=== PATIENT | female | born 1990 | race Caucasian/White ===

== ENCOUNTER 2016-09-22 08:03 | Emergency (ER) | payer MEDICARE, MEDICAID ==
[~2016-09-22] VITALS: Ht 162.6 cm; Wt 65.8 kg
[~2016-09-22 08:03] MED LIST: ALPR1TAB2 PO; OXYC30TA50 PO; PAR20T OR; PRED-188 PO; RISP4TAB50 PO; TRAZ300T13 PO
[2016-09-22 08:43] VITALS: BP 132/87
[2016-09-22] MEDS ORDERED: ONDANSETRON HCL 4 MG/2 ML VIAL IM ONE (08:45)
[2016-09-22] MEDS ORDERED: HYDROmorphone HCL 2 MG/ML VL IM ONE (08:45)
== END 2016-09-22 09:29 | disposition home or self-care (01) ==
LOC: ER 08:03
DX: L73.9 Follicular disorder, unspecified (principal); G89.4 Chronic pain syndrome; I10 Essential (primary) hypertension; M19.90 Unspecified osteoarthritis, unspecified site; F17.210 Nicotine dependence, cigarettes, uncomplicated; Z86.14 Personal history of Methicillin resistant Staphylococcus aureus infection; Z88.5 Allergy status to narcotic agent; Z88.8 Allergy status to other drugs, medicaments and biological substances
CPT/HCPCS: 96372; 99284; J1170; J2405

== ENCOUNTER 2016-09-27 11:04 | Emergency (ER) | payer MEDICARE, MEDICAID ==
[~2016-09-27] VITALS: Ht 162.6 cm; Wt 64.4 kg
[2016-09-27 12:39] LABS: Urine Bilirubin Negative (Negative); Urine Blood Negative /uL (Negative); Urine Color Yellow (Yellow); Urine Glucose 4+ mg/dL (Normal); Urine Ketone 1+ (Negative); Urine Mucus FEW (None Seen); Urine Nitrite Negative (Negative); Urine RBC 1 /hpf (0 - 4); Urine Squamous Epithelial Cell FEW /hpf (<5); Urine Urobilinogen Normal (Negative)
[2016-09-27 13:07] LABS: Basophils # (auto) 0 uL; Eosinophils # (auto) 0 uL; Eosinophils % (auto) 0.3 % (0.0-7.0); Hematocrit 47.1 % (36.0-46.0); Hemoglobin 16.2 g/dL (12.2-16.2); Lymphocytes # (auto) 1.2 uL; Lymphocytes % (auto) 7.8 % (10.0-50.0); Mean Corpuscular Hemoglobin 30.2 pg (28.0-32.0); Mean Corpuscular Hgb Conc. 34.4 g/dL (32.0-36.0); Mean Corpuscular Volume 87.7 fL (80.0-100.0); Mean Platelet Volume 8.6 fL (7.4-10.4); Monocytes # (auto) 1.4 uL; Monocytes % (auto) 8.9 % (0.0-12.0); Neutrophils # (auto) 12.8 uL; Platelet Count (auto) 233 10^3/uL (140-450); Red Cell Distribution Width 13.4 % (11.6-16.0); White Blood Cell 15.4 10^3/uL (4.4-10.8)
[2016-09-27 13:40] LABS: Albumin 3.3 g/dL (3.4-5.0); BUN/Creatinine Ratio 18.3; Bilirubin, Total 0.4 mg/dL (0.2-1.0); Calcium 8.7 mg/dL (8.5-10.1); Potassium 3.5 mmol/L (3.5-5.1); Total Protein 6.8 g/dL (6.4-8.2)
[2016-09-27] MEDS ORDERED: HYDROcodone-ACET 5/325MG TAB PO ONE (15:00)
[2016-09-27] MEDS ORDERED: LEVOFLOXACIN 500MG 100 ML IV ONE (15:15)
[2016-09-27] MEDS ORDERED: MORPHINE SULF INJ 2 MG/ML SYRINGE 1ML IV ONE (15:45)
[2016-09-27] MEDS ORDERED: ONDANSETRON HCL 4 MG/2 ML VIAL IV ONE (15:45)
[2016-09-27 16:06] VITALS: BP 111/67
== END 2016-09-27 16:43 | disposition home or self-care (01) ==
LOC: ER 11:07
DX: L03.111 Cellulitis of right axilla (principal); F17.210 Nicotine dependence, cigarettes, uncomplicated; E11.9 Type 2 diabetes mellitus without complications; I10 Essential (primary) hypertension; M19.90 Unspecified osteoarthritis, unspecified site; Z88.6 Allergy status to analgesic agent; Z79.899 Other long term (current) drug therapy
CPT/HCPCS: 36415; 80053; 81001; 85025; 96365; 96375; 99284; J1956; J2270; J2405; J7030; 96361; 96374

== ENCOUNTER 2017-02-16 12:19 | Observation (INO) | payer MEDICARE, MEDICAID ==
[~2017-02-16] VITALS: Ht 162.6 cm; Wt 63.0 kg
[2017-02-16] MEDS ORDERED: SODIUM CHLORIDE 0.9% 1,000 ML IVB ONE (15:54)
[2017-02-16 16:37] LABS: Basophils # (auto) 0.1 uL; Basophils % (auto) 0.8 % (0.0-2.0); Eosinophils # (auto) 0.1 uL; Hematocrit 49.2 % (36.0-46.0); Lymphocytes # (auto) 1.4 uL; Lymphocytes % (auto) 14.6 % (10.0-50.0); Mean Corpuscular Hemoglobin 30.7 pg (28.0-32.0); Mean Corpuscular Hgb Conc. 34.6 g/dL (32.0-36.0); Mean Corpuscular Volume 88.7 fL (80.0-100.0); Mean Platelet Volume 8.1 fL (6.9-10.8); Monocytes # (auto) 0.8 uL; Monocytes % (auto) 8.6 % (0.0-12.0); Neutrophils # (auto) 7.1 uL; Nucleated Red Blood Cells % 0.2 %; Platelet Count (auto) 205 10^3/uL (140-450); Red Cell Distribution Width 13.2 % (11.8-14.3); White Blood Cell 9.5 10^3/uL (4.4-10.8)
[2017-02-16 16:37] LABS: Urine Bilirubin Negative (Negative); Urine Blood Negative /uL (Negative); Urine Color Yellow (Yellow); Urine Glucose 4+ mg/dL (Normal); Urine Ketone Negative (Negative); Urine Nitrite Negative (Negative); Urine RBC <1 /hpf (0 - 4); Urine Squamous Epithelial Cell FEW /hpf (<5); Urine Urobilinogen Normal (Negative); Urine pH 5.5 (5.0-8.0)
[2017-02-16 16:51] LABS: Albumin 3.6 g/dL (3.4-5.0); BUN/Creatinine Ratio 7.1; Magnesium 1.8 mg/dL (1.6-2.6); Potassium 3.4 mmol/L (3.5-5.1)
[2017-02-16 16:52] LABS: INR 0.92 (0.9-1.15); Partial Thromboplastin Time 23.8 sec (22.64-33.71)
[2017-02-16 17:01] LABS: Bilirubin, Total 0.3 mg/dL (0.2-1.0); Total Protein 6.5 g/dL (6.4-8.2)
[2017-02-16] MEDS ORDERED: MORPHINE SULF INJ 2 MG/ML SYRINGE 1ML IV ONE ×2 (17:15→18:15)
[2017-02-16] MEDS ORDERED: ONDANSETRON HCL 4 MG/2 ML VIAL IV ONE ×2 (17:15→18:15)
[2017-02-16 18:49] VITALS: BP 127/71
[2017-02-16] MEDS ORDERED: DEXTROSE (50%) 50ML SYRG IV ONE (20:00)
== END 2017-02-16 19:30 | disposition home or self-care (01) | DRG 641 ==
LOC: ER 12:19 → OVERFLOW 15:57 → ER 19:30
PROVIDERS: ADMIT Family Medicine; ATTEND Family Medicine
DX: R73.9 Hyperglycemia, unspecified (principal); E11.65 Type 2 diabetes mellitus with hyperglycemia; I10 Essential (primary) hypertension
CPT/HCPCS: 36415; 80053; 81001; 82150; 82962; 83690; 83735; 85025; 85610; 85730; 96361; 96374; 96375; 96376; 99285; G0378; J2270; J2405

== ENCOUNTER → 2017-02-16 | Outpatient (CLI) | payer MEDICARE, MEDICAID ==
[2017-02-16 10:25] LABS: Basophils # (auto) 0 uL; Basophils % (auto) 0.4 % (0.0-2.0); Eosinophils # (auto) 0.1 uL; Eosinophils % (auto) 0.6 % (0.0-7.0); Hematocrit 48.8 % (36.0-46.0); Hemoglobin 16.7 g/dL (12.2-16.2); Lymphocytes # (auto) 1.1 uL; Lymphocytes % (auto) 8.7 % (10.0-50.0); Mean Corpuscular Hemoglobin 31.1 pg (28.0-32.0); Mean Corpuscular Hgb Conc. 34.3 g/dL (32.0-36.0); Mean Corpuscular Volume 90.5 fL (80.0-100.0); Mean Platelet Volume 8.4 fL (6.9-10.8); Monocytes % (auto) 7.8 % (0.0-12.0); Neutrophils # (auto) 10.2 uL; Neutrophils % (auto) 82.5 % (37.0-80.0); Platelet Count (auto) 207 10^3/uL (140-450); Red Cell Distribution Width 13.6 % (11.8-14.3); White Blood Cell 12.3 10^3/uL (4.4-10.8)
[2017-02-16 10:58] LABS: Albumin 3.4 g/dL (3.4-5.0); BUN/Creatinine Ratio 7.5; Bilirubin, Total 0.3 mg/dL (0.2-1.0); Calcium 8.6 mg/dL (8.5-10.1); Potassium 3.9 mmol/L (3.5-5.1); Total Protein 6.8 g/dL (6.4-8.2)
== END | disposition home or self-care (01) ==
LOC: LAB 09:37
DX: I10 Essential (primary) hypertension (principal); M06.9 Rheumatoid arthritis, unspecified; M25.50 Pain in unspecified joint; D64.9 Anemia, unspecified; E11.9 Type 2 diabetes mellitus without complications; Z79.899 Other long term (current) drug therapy
CPT/HCPCS: 36415; 80053; 85025; 85652; 86141

== ENCOUNTER 2017-02-20 14:09 | Emergency (ER) | payer MEDICARE, MEDICAID ==
[~2017-02-20] VITALS: Ht 162.6 cm; Wt 62.6 kg
[2017-02-20] MEDS ORDERED: FLUORESCEIN SOD 1 MG TEST STRIP ONE (20:16)
[2017-02-20] MEDS ORDERED: FLUORESCEIN SOD 1 MG TEST STRIP EACHEYE ONE (20:30)
[2017-02-20] MEDS ORDERED: TETRACAINE HCL 0.5% OPTH(EYE) SOLN 4ML EACHEYE ONE (20:30)
[2017-02-20] MEDS ORDERED: TETRACAINE HCL 0.5% OPTH(EYE) SOLN 4ML RIGHTEYE ONE (20:30)
[2017-02-20] MEDS ORDERED: SODIUM CHLORIDE 0.9% 1,000 ML IVB ONE (20:59)
[2017-02-20] MEDS ORDERED: ONDANSETRON HCL 4 MG/2 ML VIAL IV ONE (21:00)
[2017-02-20] MEDS ORDERED: HYDROmorphone HCL 2 MG/ML VL IV ONE (21:00)
[2017-02-20 21:25] LABS: Basophils # (auto) 0.1 uL; Eosinophils # (auto) 0.1 uL; Eosinophils % (auto) 0.8 % (0.0-7.0); Hematocrit 49.1 % (36.0-46.0); Hemoglobin 17.2 g/dL (12.2-16.2); Lymphocytes # (auto) 1.1 uL; Lymphocytes % (auto) 7.7 % (10.0-50.0); Mean Corpuscular Hemoglobin 30.9 pg (28.0-32.0); Mean Corpuscular Hgb Conc. 34.9 g/dL (32.0-36.0); Mean Corpuscular Volume 88.4 fL (80.0-100.0); Mean Platelet Volume 8.2 fL (6.9-10.8); Monocytes # (auto) 1.4 uL; Monocytes % (auto) 9.9 % (0.0-12.0); Neutrophils # (auto) 11.5 uL; Neutrophils % (auto) 80.6 % (37.0-80.0); Platelet Count (auto) 187 10^3/uL (140-450); Red Cell Distribution Width 13.5 % (11.8-14.3); White Blood Cell 14.2 10^3/uL (4.4-10.8)
[2017-02-20 21:46] LABS: Albumin 3.4 g/dL (3.4-5.0); BUN/Creatinine Ratio 8.9; Calcium 8.6 mg/dL (8.5-10.1); Potassium 3.9 mmol/L (3.5-5.1)
[2017-02-20 21:49] LABS: Bilirubin, Total 0.4 mg/dL (0.2-1.0); Total Protein 6.6 g/dL (6.4-8.2)
[2017-02-20] MEDS ORDERED: InsuLIN REG 1unit/0.01ml Soln (100units/ml) IV ONE (22:45)
[2017-02-20] MEDS ORDERED: SODIUM CHLORIDE 0.9% 1,000 ML IV ONE (22:45)
[2017-02-20 23:00] VITALS: BP 118/79
== END 2017-02-20 23:34 | disposition home or self-care (01) ==
LOC: ER 14:17
DX: H15.001 Unspecified scleritis, right eye (principal); H15.101 Unspecified episcleritis, right eye; E11.65 Type 2 diabetes mellitus with hyperglycemia; M19.90 Unspecified osteoarthritis, unspecified site; I10 Essential (primary) hypertension; F17.210 Nicotine dependence, cigarettes, uncomplicated; R51 Headache; Z88.8 Allergy status to other drugs, medicaments and biological substances; Z88.6 Allergy status to analgesic agent
CPT/HCPCS: 36415; 80053; 83690; 85025; 96361; 96374; 96375; 99284; J1170; J2405; J7030

== ENCOUNTER 2017-08-25 18:49 | Emergency (ER) | payer MEDICARE, MEDICAID ==
[~2017-08-25] VITALS: Ht 162.6 cm; Wt 66.7 kg
[2017-08-25 20:28] LABS: Basophils # (auto) 0.1 uL; Lymphocytes # (auto) 1.6 uL; Lymphocytes % (auto) 12.6 % (10.0-50.0); Monocytes % (auto) 7.7 % (0.0-12.0)
[2017-08-25 20:34] LABS: Basophils % (auto) 0.5 % (0.0-2.0); Eosinophils # (auto) 0.2 uL; Eosinophils % (auto) 1.2 % (0.0-7.0); Hematocrit 54.2 % (36.0-46.0); Hemoglobin 19.1 g/dL (12.2-16.2); Mean Corpuscular Hemoglobin 31.3 pg (28.0-32.0); Mean Corpuscular Hgb Conc. 35.3 g/dL (32.0-36.0); Mean Corpuscular Volume 88.6 fL (80.0-100.0); Neutrophils # (auto) 9.7 uL; Nucleated Red Blood Cells % 0.3 %; Platelet Count (auto) 258 10^3/uL (140-450); Red Blood Cells 6.12 10^6/uL (4.0-5.20); Red Cell Distribution Width 14.1 % (11.8-14.3); White Blood Cell 12.4 10^3/uL (4.4-10.8)
[2017-08-25 20:44] LABS: Urine Bacteria FEW /hpf (None Seen); Urine Blood Negative /uL (Negative); Urine Specific Gravity 1.009 (1.001-1.035); Urine WBC 1 /hpf (0 - 5)
[2017-08-25 20:49] LABS: Blood Urea Nitrogen 12 mg/dL (7-18); Calcium 9.2 mg/dL (8.5-10.1); Chloride 99 mmol/L (98-107); Glucose 332 mg/dL (74-106); Sodium 131 mmol/L (136-145)
[2017-08-25 20:52] LABS: Albumin 3.9 g/dL (3.4-5.0); Anion Gap 14 (5-15); BUN/Creatinine Ratio 13.8; Carbon Dioxide 18 mmol/L (21-32); GFR African American 101 mL/min; GFR Non-African American 84 mL/min
[2017-08-25 21:03] LABS: Alanine Aminotransferase 25 U/L (13-56); Alkaline Phosphatase 125 U/L (45-117); Aspartate Aminotransferase 25 U/L (15-37); Bilirubin, Total 0.3 mg/dL (0.2-1.0); Total Protein 7.8 g/dL (6.4-8.2)
[2017-08-26] MEDS ORDERED: SODIUM CHLORIDE 0.9% 2,000 ML IV ONE (01:45)
[2017-08-26] MEDS ORDERED: ONDANSETRON HCL 4 MG/2 ML VIAL IV ONE (01:45)
[2017-08-26] MEDS ORDERED: MEPERIDINE HCL (50 MG/ML) 1 ML VIAL IV ONE (01:45)
[2017-08-26] MEDS ORDERED: LORazepam 0.5 MG TAB PO ONE (02:45)
[2017-08-26 03:23] VITALS: BP 135/80
== END 2017-08-26 03:23 | disposition home or self-care (01) ==
LOC: ER 18:49
DX: G89.4 Chronic pain syndrome (principal); E11.9 Type 2 diabetes mellitus without complications; I10 Essential (primary) hypertension; M19.90 Unspecified osteoarthritis, unspecified site; F17.210 Nicotine dependence, cigarettes, uncomplicated; Z88.8 Allergy status to other drugs, medicaments and biological substances; Z88.6 Allergy status to analgesic agent
CPT/HCPCS: 36415; 71046; 80053; 81001; 83880; 84484; 85025; 93005; 96361; 96374; 96375; 99285; J2175; J2405; J7030

== ENCOUNTER 2017-08-29 16:31 | Emergency (ER) | payer MEDICARE, MEDICAID ==
[~2017-08-29] VITALS: Ht 162.6 cm; Wt 66.7 kg
[2017-08-29 16:51] VITALS: BP 152/109
== END 2017-08-29 17:45 | disposition home or self-care (01) ==
LOC: ER 16:31
DX: F10.230 Alcohol dependence with withdrawal, uncomplicated (principal); Z53.21 Procedure and treatment not carried out due to patient leaving prior to being seen by health care provider

== ENCOUNTER 2018-02-17 06:17 | Inpatient (IN) | payer OTHER, MEDICAID ==
[~2018-02-17] VITALS: Ht 160 cm; Wt 69.4 kg
[2018-02-17 07:34] LABS: Hematocrit 46.1 % (36.0-46.0); Hemoglobin 16.2 g/dL (12.2-16.2); Mean Corpuscular Hemoglobin 31.3 pg (28.0-32.0); Mean Corpuscular Hgb Conc. 35.2 g/dL (32.0-36.0); Platelet Count (auto) 232 10^3/uL (140-450); Red Blood Cells 5.18 10^6/uL (4.0-5.20); Red Cell Distribution Width 13.5 % (11.8-14.3); White Blood Cell 12.7 10^3/uL (4.4-10.8)
[2018-02-17 07:35] LABS: Urine Bacteria FEW /hpf (None Seen); Urine Blood Negative /uL (Negative); Urine Specific Gravity 1.011 (1.001-1.035); Urine WBC 1 /hpf (0 - 5)
[2018-02-17 07:54] LABS: Albumin 3.4 g/dL (3.4-5.0); BUN/Creatinine Ratio 6.7; Calcium 8.2 mg/dL (8.5-10.1); Magnesium 1.9 mg/dL (1.6-2.6); Potassium 4.1 mmol/L (3.5-5.1)
[2018-02-17 07:57] LABS: Bilirubin, Total 0.3 mg/dL (0.2-1.0); Total Protein 6.9 g/dL (6.4-8.2)
[2018-02-17 08:05] LABS: Blast Cells 0; Metamyelocytes % 0; Myelocytes % 0; Promyelocytes % 0; Reactive Lymphocytes 0
[2018-02-17 08:32] LABS: Band Neutrophils % (manual) 5; Basophils % (manual) 1 (0.0-2.0); Eosinophils % (manual) 1 (0-7); Lymphocytes % (manual) 6 (10.0-50.0); Monocytes % (manual) 4 (0-12)
[2018-02-17] MEDS ORDERED: SODIUM CHLORIDE 0.9% 1,000 ML IV ONE (10:41)
[2018-02-17] MEDS ORDERED: PIPERACILLIN-TAZOB 3.375GM 100 ML IV ONE (10:45)
[2018-02-17] MEDS ORDERED: ONDANSETRON HCL 4 MG/2 ML VIAL IV ONE (10:45)
[2018-02-17] MEDS ORDERED: MORPHINE SULFATE 4 MG/ML SYR/VIAL IV ONE (10:45)
[2018-02-17] MEDS ORDERED: NITROGLYCERIN 0.4 MG SL TAB SL PRN (13:30)
[2018-02-17] MEDS ORDERED: ALBUTEROL SULF 2.5 MG/0.5ML(0.5%) NEB SOLN NEB PRN (13:30)
[2018-02-17] MEDS ORDERED: ONDANSETRON HCL 4 MG/2 ML VIAL IV PRN (13:30)
[2018-02-17] MEDS ORDERED: DEXTROSE (50%) 50ML SYRG IV PRN (13:30)
[2018-02-17] MEDS ORDERED: MORPHINE SULFATE 4 MG/ML SYR/VIAL IV PRN ×3 (13:30)
[2018-02-17] MEDS ORDERED: ALPRAZolam 0.5 MG TAB PO ONE (14:30)
[2018-02-17] MEDS: cefTRIAXone 1GM/10ml IVPUSH 10 ML IV SCH (14:47)
[2018-02-17] MEDS: methylPREDNISolone SOD SUCC 40 MG/ML VL IV SCH (14:47)
[2018-02-17] MEDS: metroNIDAZOLE 500MG/100ML 100 ML IV SCH ×2 (14:47→20:34)
[2018-02-17] MEDS: FAMOTIDINE (10MG/ML) 2ML VL IV SCH ×2 (14:47→20:35)
[2018-02-17] MEDS: SODIUM CHLORIDE 0.9% 1,000 ML IV SCH ×2 (14:47→20:01)
[2018-02-17] MEDS ORDERED: OXYCODONE HCL 5MG TAB PO PRN (15:15)
[2018-02-17 16:40] VITALS: BP 119/71
[2018-02-17] MEDS ORDERED: RISP4TAB53 PO (16:52)
[2018-02-17] MEDS ORDERED: METF-370 PO (16:58)
[2018-02-17] MEDS ORDERED: QUET25TA37 PO (16:58)
[2018-02-17] MEDS ORDERED: MIR30T PO (16:58)
[2018-02-17 17:29] VITALS: BP 113/72
[2018-02-17] MEDS: ACCU-CHEK COMFORT CURVE STRIP VI SCH (17:59)
[2018-02-17] MEDS: MORPHINE SULFATE 4 MG/ML SYR/VIAL IV PRN ×2 (18:08→22:22)
[2018-02-17] MEDS: InsuLIN REG 1unit/0.01ml Soln (100units/ml) SC SCH (18:09)
[2018-02-17] MEDS ORDERED: GABA-339 PO (18:31)
[2018-02-17] MEDS: risperiDONE 1 MG TAB PO SCH (20:34)
[2018-02-17] MEDS: ALPRAZolam 0.5 MG TAB PO SCH (20:35)
[2018-02-17] MEDS: OXYCODONE HCL 5MG TAB PO PRN (20:36)
[2018-02-17 22:00] VITALS: BP 113/71
[2018-02-17] MEDS ORDERED: ALPRAZOLAM 2 MG PO SCH (22:00)
[2018-02-17] MEDS ORDERED: traZODone HCL 50 MG TAB PO SCH (22:00)
[2018-02-17] MEDS ORDERED: QUEtiapine FUMARATE 25 MG TAB PO ONE (23:15)
[2018-02-18] MEDS: OXYCODONE HCL 5MG TAB PO PRN ×5 (00:55→20:24)
[2018-02-18] MEDS: methylPREDNISolone SOD SUCC 40 MG/ML VL IV SCH (02:00)
[2018-02-18] MEDS: SODIUM CHLORIDE 0.9% 1,000 ML IV SCH ×3 (02:41→11:30)
[2018-02-18] MEDS: MORPHINE SULFATE 4 MG/ML SYR/VIAL IV PRN ×6 (03:12→22:28)
[2018-02-18 05:17] VITALS: BP 105/66
[2018-02-18] MEDS: InsuLIN REG 1unit/0.01ml Soln (100units/ml) SC SCH ×5 (06:00→21:26)
[2018-02-18] MEDS: metroNIDAZOLE 500MG/100ML 100 ML IV SCH ×3 (06:05→21:11)
[2018-02-18] MEDS: ACCU-CHEK COMFORT CURVE STRIP VI SCH ×5 (06:27→21:26)
[2018-02-18 06:55] LABS: Hematocrit 48.6 % (36.0-46.0); Hemoglobin 17.2 g/dL (12.2-16.2); Mean Corpuscular Hemoglobin 31.5 pg (28.0-32.0); Mean Corpuscular Hgb Conc. 35.4 g/dL (32.0-36.0); Platelet Count (auto) 225 10^3/uL (140-450); Red Blood Cells 5.46 10^6/uL (4.0-5.20); Red Cell Distribution Width 13.7 % (11.8-14.3); White Blood Cell 10.1 10^3/uL (4.4-10.8)
[2018-02-18 07:07] LABS: Basophils % (manual) 0 (0.0-2.0); Blast Cells 0; Metamyelocytes % 0; Myelocytes % 0; Promyelocytes % 0; Reactive Lymphocytes 0
[2018-02-18 07:36] LABS: Anion Gap 8 (5-15); Blood Urea Nitrogen 6 mg/dL (7-18); Carbon Dioxide 27 mmol/L (21-32); Chloride 103 mmol/L (98-107); Glucose 120 mg/dL (74-106); Sodium 138 mmol/L (136-145)
[2018-02-18 07:37] LABS: Alanine Aminotransferase 29 U/L (13-56); Albumin 3.3 g/dL (3.4-5.0); Alkaline Phosphatase 86 U/L (45-117); Amylase 36 U/L (25-115); Aspartate Aminotransferase 15 U/L (15-37); BUN/Creatinine Ratio 10.7; Bilirubin, Total 0.2 mg/dL (0.2-1.0); Calcium 8.8 mg/dL (8.5-10.1); GFR African American 168 mL/min; GFR Non-African American 139 mL/min; Lipase 82 U/L (73-393); Total Protein 6.9 g/dL (6.4-8.2)
[2018-02-18 08:21] LABS: Band Neutrophils % (manual) 1; Eosinophils % (manual) 3 (0-7); Lymphocytes % (manual) 17 (10.0-50.0); Monocytes % (manual) 8 (0-12)
[2018-02-18 09:00] VITALS: BP 108/57
[2018-02-18] MEDS: cefTRIAXone 1GM/10ml IVPUSH 10 ML IV SCH (10:32)
[2018-02-18] MEDS: FAMOTIDINE (10MG/ML) 2ML VL IV SCH (10:32)
[2018-02-18] MEDS: risperiDONE 1 MG TAB PO SCH (10:33)
[2018-02-18] MEDS: ALPRAZolam 0.5 MG TAB PO SCH ×2 (10:33→21:11)
[2018-02-18] MEDS: PARoxetine 20 MG TAB PO SCH (10:33)
[2018-02-18] MEDS ORDERED: ONDANSETRON HCL 4 MG/2 ML VIAL IV PRN (12:15)
[2018-02-18 13:00] VITALS: BP 113/68
[2018-02-18 17:03] VITALS: BP 104/72
[2018-02-18] MEDS ORDERED: QUEtiapine FUMARATE 100 MG TAB ONE (21:07)
[2018-02-18] MEDS: predniSONE 20 MG TAB PO SCH (21:11)
[2018-02-18] MEDS: FAMOTIDINE 20 MG TAB PO SCH (21:11)
[2018-02-18 22:00] VITALS: BP 118/74
[2018-02-18] MEDS ORDERED: QUEtiapine FUMARATE 100 MG TAB PO SCH (22:00)
[2018-02-19] MEDS: OXYCODONE HCL 5MG TAB PO PRN ×3 (01:37→06:30)
[2018-02-19] MEDS: MORPHINE SULFATE 4 MG/ML SYR/VIAL IV PRN ×3 (03:05→12:09)
[2018-02-19] MEDS: SODIUM CHLORIDE 0.9% 1,000 ML IV SCH (03:07)
[2018-02-19] MEDS: metroNIDAZOLE 500MG/100ML 100 ML IV SCH (05:15)
[2018-02-19] MEDS: InsuLIN REG 1unit/0.01ml Soln (100units/ml) SC SCH ×2 (05:33→12:09)
[2018-02-19] MEDS: ACCU-CHEK COMFORT CURVE STRIP VI SCH ×2 (05:33→12:09)
[2018-02-19 05:44] VITALS: BP 101/62
[2018-02-19 09:00] VITALS: BP 119/81
[2018-02-19] MEDS: cefTRIAXone 1GM/10ml IVPUSH 10 ML IV SCH (09:00)
[2018-02-19] MEDS: PARoxetine 20 MG TAB PO SCH (09:39)
[2018-02-19] MEDS: FAMOTIDINE 20 MG TAB PO SCH (09:39)
[2018-02-19] MEDS: predniSONE 20 MG TAB PO SCH (09:39)
[2018-02-19] MEDS: ALPRAZolam 0.5 MG TAB PO SCH (09:40)
[2018-02-19] MEDS ORDERED: risperiDONE 1 MG TAB PO SCH (10:00)
[2018-02-19 13:00] VITALS: BP 119/77
[2018-02-20 19:17] LABS: Cholesterol 180 mg/dL (< 200); HDL Cholesterol 23 mg/dL (40-59); LDL Cholesterol 107 mg/dL (< 100); Triglycerides 288 mg/dL (< 150)
== END 2018-02-19 14:10 | disposition home or self-care (01) | DRG 391 ==
LOC: ER 06:17 → TELE 06:18 → TELE-EAST 15:52
PROVIDERS: ADMIT Internal Medicine; ATTEND Internal Medicine
DX: A09 Infectious gastroenteritis and colitis, unspecified (principal); K85.90 Acute pancreatitis without necrosis or infection, unspecified; E87.1 Hypo-osmolality and hyponatremia; F11.20 Opioid dependence, uncomplicated; G89.4 Chronic pain syndrome; F20.9 Schizophrenia, unspecified; F17.210 Nicotine dependence, cigarettes, uncomplicated; E11.9 Type 2 diabetes mellitus without complications; F31.9 Bipolar disorder, unspecified; I10 Essential (primary) hypertension; J45.909 Unspecified asthma, uncomplicated; M32.9 Systemic lupus erythematosus, unspecified; M41.9 Scoliosis, unspecified; M79.7 Fibromyalgia; Z79.52 Long term (current) use of systemic steroids; Z83.3 Family history of diabetes mellitus; F41.9 Anxiety disorder, unspecified; N28.1 Cyst of kidney, acquired; M19.90 Unspecified osteoarthritis, unspecified site; Z82.61 Family history of arthritis; Z79.899 Other long term (current) drug therapy; Z88.6 Allergy status to analgesic agent; K29.50 Unspecified chronic gastritis without bleeding; K64.8 Other hemorrhoids; M06.9 Rheumatoid arthritis, unspecified; M21.962 Unspecified acquired deformity of left lower leg; Z72.89 Other problems related to lifestyle; G89.29 Other chronic pain; Z71.6 Tobacco abuse counseling
CPT/HCPCS: 36415; 71045; 74176; 80053; 80061; 81001; 82150; 82784; 82962; 83036; 83516; 83605; 83690; 83735; 85007; 85027; 85652; 86141; 86255; 87040; 87045; 87081; 87493; 87899; 96374; 96375; 96376; J0696; J1815; J2405; J2543; J3490

== ENCOUNTER 2018-08-03 08:57 | Emergency (ER) | payer MEDICAID, OTHER ==
[~2018-08-03] VITALS: Ht 160 cm; Wt 70.8 kg
[~2018-08-03 08:57] MED LIST changes: +GABA-339 PO; +METF-370 PO; +MIR30T PO; +QUET25TA37 PO; -RISP4TAB50 PO; +RISP4TAB53 PO; -TRAZ300T13 PO
[2018-08-03 09:58] LABS: Urine Bacteria FEW /hpf (None Seen); Urine Blood Negative /uL (Negative); Urine Hyaline Cast FEW /lpf (0 - 2); Urine Mucus FEW (None Seen); Urine Specific Gravity 1.016 (1.001-1.035); Urine WBC 3 /hpf (0 - 5)
[2018-08-03 10:36] LABS: Red Blood Cells 5.86 10^6/uL (4.0-5.20); Red Cell Distribution Width 14.9 % (11.8-14.3)
[2018-08-03 10:39] LABS: Hematocrit 53.5 % (36.0-46.0); Hemoglobin 18.2 g/dL (12.2-16.2); Mean Corpuscular Hemoglobin 31.1 pg (28.0-32.0); Mean Corpuscular Hgb Conc. 34.1 g/dL (32.0-36.0); Mean Corpuscular Volume 91.4 fL (80.0-100.0); Platelet Count (auto) 324 10^3/uL (140-450); White Blood Cell 13.3 10^3/uL (4.4-10.8)
[2018-08-03 10:41] LABS: INR 0.87 (0.9-1.15); Partial Thromboplastin Time 25.1 sec (23.78-33.04); Prothrombin Time 9.4 sec (9.27-12.13)
[2018-08-03 10:43] LABS: Alanine Aminotransferase 41 U/L (13-56); Albumin 4.4 g/dL (3.4-5.0); Amylase 38 U/L (25-115); Anion Gap 13 (5-15); Aspartate Aminotransferase 19 U/L (15-37); Basophils % (manual) 0 (0.0-2.0); Blast Cells 0; Calcium 9.5 mg/dL (8.5-10.1); Carbon Dioxide 21 mmol/L (21-32); Chloride 102 mmol/L (98-107); Eosinophils % (manual) 0 (0-7); GFR African American 64 mL/min; GFR Non-African American 53 mL/min; Glucose 294 mg/dL (74-106); Lipase 124 U/L (73-393); Metamyelocytes % 0; Myelocytes % 0; Potassium 3.5 mmol/L (3.5-5.1); Promyelocytes % 0; Reactive Lymphocytes 0; Sodium 136 mmol/L (136-145)
[2018-08-03 10:48] LABS: Alkaline Phosphatase 120 U/L (45-117); BUN/Creatinine Ratio 5.5; Bilirubin, Total 0.5 mg/dL (0.2-1.0); Blood Urea Nitrogen 7 mg/dL (7-18)
[2018-08-03] MEDS ORDERED: SODIUM CHLORIDE 0.9% 1,000 ML IV ONE (10:57)
[2018-08-03] MEDS ORDERED: cefTRIAXone 1GM/50ML D5W 50 ML IV ONE (11:15)
[2018-08-03 12:02] LABS: Band Neutrophils % (manual) 3; Lymphocytes % (manual) 12 (10.0-50.0); Monocytes % (manual) 5 (0-12)
[2018-08-03 13:20] VITALS: BP 147/95
== END 2018-08-03 13:20 | disposition home or self-care (01) ==
LOC: ER 08:57
DX: N39.0 Urinary tract infection, site not specified (principal); E86.0 Dehydration; E11.9 Type 2 diabetes mellitus without complications; I10 Essential (primary) hypertension; M32.9 Systemic lupus erythematosus, unspecified; F17.210 Nicotine dependence, cigarettes, uncomplicated; Z79.84 Long term (current) use of oral hypoglycemic drugs; Z79.899 Other long term (current) drug therapy; Z88.6 Allergy status to analgesic agent; Z88.1 Allergy status to other antibiotic agents
CPT/HCPCS: 36415; 74176; 80053; 81001; 82150; 83690; 84484; 85007; 85027; 85610; 85730

== ENCOUNTER 2019-03-07 09:39 | Emergency (ER) | payer MEDICARE, MEDICAID ==
[~2019-03-07] VITALS: Ht 160 cm; Wt 70.8 kg
[2019-03-07] MEDS ORDERED: SODIUM CHLORIDE 0.9% 1,000 ML IV ONE ×2 (10:09→11:24)
[2019-03-07] MEDS ORDERED: MORPHINE SULF INJ 2 MG/ML SYRINGE 1ML IV ONE ×2 (10:15→13:30)
[2019-03-07 10:22] LABS: Basophils # (auto) 0.1 uL; Eosinophils # (auto) 0.1 uL; Neutrophils # (auto) 8.3 uL; Nucleated Red Blood Cells % 0.1 %
[2019-03-07 10:24] LABS: Basophils % (auto) 1.1 % (0.0-2.0); Eosinophils % (auto) 0.7 % (0.0-7.0); Lymphocytes # (auto) 0.9 uL; Lymphocytes % (auto) 8.8 % (10.0-50.0); Mean Corpuscular Hemoglobin 30.6 pg (28.0-32.0); Mean Corpuscular Hgb Conc. 34.9 g/dL (32.0-36.0); Mean Corpuscular Volume 87.6 fL (80.0-100.0); Monocytes # (auto) 0.9 uL; Monocytes % (auto) 8.6 % (0.0-12.0); Neutrophils % (auto) 80.8 % (37.0-80.0); Platelet Count (auto) 188 10^3/uL (140-450); Red Blood Cells 6.54 10^6/uL (4.0-5.20); Red Cell Distribution Width 14.9 % (11.8-14.3); White Blood Cell 10.3 10^3/uL (4.4-10.8)
[2019-03-07 10:25] LABS: Hematocrit 57.3 % (36.0-46.0)
[2019-03-07 10:59] LABS: Alkaline Phosphatase 157 U/L (45-117); Anion Gap 9 (5-15); BUN/Creatinine Ratio 7.9; Blood Urea Nitrogen 7 mg/dL (7-18); Carbon Dioxide 22 mmol/L (21-32); Chloride 99 mmol/L (98-107); GFR African American 98 mL/min; GFR Non-African American 81 mL/min; Potassium 5.2 mmol/L (3.5-5.1); Sodium 130 mmol/L (136-145)
[2019-03-07 11:00] LABS: Alanine Aminotransferase 25 U/L (13-56); Albumin 3.8 g/dL (3.4-5.0); Aspartate Aminotransferase 35 U/L (15-37); Bilirubin, Total 0.5 mg/dL (0.2-1.0); Calcium 9.3 mg/dL (8.5-10.1); Total Protein 8.3 g/dL (6.4-8.2)
[2019-03-07 11:01] LABS: Glucose 402 mg/dL (74-106)
[2019-03-07 11:30] LABS: Urine Bacteria NONE SEEN /hpf (None Seen); Urine Blood Negative /uL (Negative); Urine Specific Gravity 1.015 (1.001-1.035); Urine WBC 1 /hpf (0 - 5)
[2019-03-07] MEDS ORDERED: InsuLIN REG 1unit/0.01ml Soln (100units/ml) IV ONE ×2 (11:30→13:00)
[2019-03-07] MEDS ORDERED: SODIUM CHLORIDE 0.9% 1,000 ML IVB ONE (12:52)
[2019-03-07 14:25] VITALS: BP 131/91
== END 2019-03-07 16:27 | disposition home or self-care (01) ==
LOC: ER 09:39
DX: E11.65 Type 2 diabetes mellitus with hyperglycemia (principal); I10 Essential (primary) hypertension; F31.9 Bipolar disorder, unspecified; F20.9 Schizophrenia, unspecified; M06.9 Rheumatoid arthritis, unspecified; F17.210 Nicotine dependence, cigarettes, uncomplicated
CPT/HCPCS: 36415; 71046; 80053; 81001; 81025; 82962; 83735; 84702; 85025; 96361; 96374; 96375; 96376; 99284; J1815; J2270; J7030

== ENCOUNTER 2019-06-27 12:23 | Emergency (ER) | payer MEDICARE, MEDICAID ==
[~2019-06-27] VITALS: Ht 160 cm; Wt 73.9 kg
[2019-06-27 12:48] VITALS: BP 124/87
[2019-06-27] MEDS ORDERED: cefTRIAXone SOD 1,000 MG VL IM ONE (15:15)
== END 2019-06-27 15:32 | disposition home or self-care (01) ==
LOC: ER 12:23
DX: L02.412 Cutaneous abscess of left axilla (principal); I10 Essential (primary) hypertension; F17.210 Nicotine dependence, cigarettes, uncomplicated; Z88.6 Allergy status to analgesic agent; Z79.899 Other long term (current) drug therapy
CPT/HCPCS: 96372; 99283; J0696

== ENCOUNTER 2020-03-14 11:28 | Emergency (ER) | payer MEDICARE, MEDICAID ==
[~2020-03-14] VITALS: Ht 160 cm; Wt 69.4 kg
[2020-03-14] MEDS ORDERED: InsuLIN REG 1unit/0.01ml Soln (100units/ml) IV ONE (12:00)
[2020-03-14] MEDS ORDERED: HYDROmorphone HCL 2 MG/ML VL IV ONE (12:00)
[2020-03-14] MEDS ORDERED: SODIUM CHLORIDE 0.9% 1,000 ML IVB ONE (12:00)
[2020-03-14] MEDS ORDERED: ONDANSETRON HCL 4 MG/2 ML VIAL IV ONE (12:00)
[2020-03-14 12:10] LABS: Basophils # (auto) 0 10 ^3/uL (0-0.2); Eosinophils # (auto) 0.1 10 ^3/uL (0-0.8); Lymphocytes # (auto) 0.9 10 ^3/uL (0.4-5.4); Monocytes # (auto) 0.9 10 ^3/uL (0-1.3); Red Blood Cells 6.63 10^6/uL (4.0-5.20)
[2020-03-14 12:12] LABS: Basophils % (auto) 0.5 % (0.0-2.0); Eosinophils % (auto) 1.3 % (0.0-7.0); Hematocrit 59.5 % (36.0-46.0); Lymphocytes % (auto) 10.9 % (10.0-50.0); Mean Corpuscular Hemoglobin 30.2 pg (28.0-32.0); Mean Corpuscular Hgb Conc. 33.6 g/dL (32.0-36.0); Mean Corpuscular Volume 89.8 fL (80.0-100.0); Monocytes % (auto) 10.5 % (0.0-12.0); Neutrophils # (auto) 6.3 10 ^3/uL (1.6-8.6); Neutrophils % (auto) 76.8 % (37.0-80.0); Nucleated Red Blood Cells % 0.2 %; Platelet Count (auto) 151 10^3/uL (140-450); Red Cell Distribution Width 14.4 % (11.8-14.3); White Blood Cell 8.2 10^3/uL (4.4-10.8)
[2020-03-14 12:17] LABS: Urine Bacteria NONE SEEN /hpf (None Seen); Urine Blood Negative /uL (Negative); Urine Specific Gravity 1.027 (1.001-1.035); Urine WBC 6 /hpf (0 - 5)
[2020-03-14 12:32] LABS: Albumin 3.2 g/dL (3.4-5.0); Calcium 8.9 mg/dL (8.5-10.1); Potassium 4.2 mmol/L (3.5-5.1)
[2020-03-14 12:35] LABS: BUN/Creatinine Ratio 9.1; Bilirubin, Total 0.4 mg/dL (0.2-1.0); Total Protein 7.5 g/dL (6.4-8.2)
[2020-03-14] MEDS ORDERED: ALPRAZolam 0.5 MG TAB PO ONE (13:30)
[2020-03-14 14:54] VITALS: BP 134/88
[2020-03-14] MEDS ORDERED: SODIUM CHLORIDE 0.9% 2,000 ML IV ONE (15:00)
[2020-03-14] MEDS ORDERED: INSULIN 70/30 1unit/0.01ml Susp (100units/ml) SC ONE (15:15)
== END 2020-03-14 15:34 | disposition left against medical advice (07) ==
LOC: ER 11:28
DX: E11.65 Type 2 diabetes mellitus with hyperglycemia (principal); E11.10 Type 2 diabetes mellitus with ketoacidosis without coma; E86.0 Dehydration; F17.210 Nicotine dependence, cigarettes, uncomplicated; R00.0 Tachycardia, unspecified; I10 Essential (primary) hypertension; F20.9 Schizophrenia, unspecified; F41.9 Anxiety disorder, unspecified; Z20.828 Contact with and (suspected) exposure to other viral communicable diseases; Z88.6 Allergy status to analgesic agent; Z88.5 Allergy status to narcotic agent; Z79.84 Long term (current) use of oral hypoglycemic drugs; Z79.899 Other long term (current) drug therapy; Z98.890 Other specified postprocedural states
CPT/HCPCS: 36415; 36600; 71045; 80053; 81001; 82010; 82805; 82962; 83735; 84702; 85025; 87426; 93005; 96361; 96374; 96375; 99285; J1170; J1815; J2405

== ENCOUNTER 2020-08-29 11:26 | Emergency (ER) | payer MEDICARE, MEDICAID ==
[~2020-08-29] VITALS: Ht 160 cm; Wt 75.7 kg
[2020-08-29] MEDS ORDERED: SODIUM CHLORIDE 0.9% 500 ML IV ONE (11:45)
[2020-08-29 12:31] LABS: Basophils # (auto) 0.1 10 ^3/uL (0-0.2); Eosinophils # (auto) 0.1 10 ^3/uL (0-0.8); Hemoglobin 19.5 g/dL (12.2-16.2); Mean Corpuscular Hemoglobin 30.1 pg (28.0-32.0); Monocytes # (auto) 1.3 10 ^3/uL (0-1.3); Neutrophils % (auto) 80.4 % (37.0-80.0); Red Blood Cells 6.49 10^6/uL (4.0-5.20)
[2020-08-29 12:33] LABS: Basophils % (auto) 0.6 % (0.0-2.0); Eosinophils % (auto) 0.5 % (0.0-7.0); Hematocrit 56.7 % (36.0-46.0); Lymphocytes # (auto) 1.2 10 ^3/uL (0.4-5.4); Lymphocytes % (auto) 8.6 % (10.0-50.0); Mean Corpuscular Hgb Conc. 34.5 g/dL (32.0-36.0); Mean Corpuscular Volume 87.3 fL (80.0-100.0); Monocytes % (auto) 9.9 % (0.0-12.0); Neutrophils # (auto) 10.8 10 ^3/uL (1.6-8.6); Nucleated Red Blood Cells % 0.1 %; Platelet Count (auto) 187 10^3/uL (140-450); Red Cell Distribution Width 14.8 % (11.8-14.3); White Blood Cell 13.4 10^3/uL (4.4-10.8)
[2020-08-29] MEDS ORDERED: HYDROmorphone HCL 2 MG/ML VL IV ONE ×3 (12:45→19:15)
[2020-08-29] MEDS ORDERED: ONDANSETRON HCL 4 MG/2 ML VIAL IV ONE ×2 (12:45→14:15)
[2020-08-29 12:58] LABS: Potassium 3.8 mmol/L (3.5-5.1)
[2020-08-29] MEDS ORDERED: CLINDAMYCIN 600MG IV 50 ML IV ONE (13:00)
[2020-08-29 13:01] LABS: BUN/Creatinine Ratio 12.5; Bilirubin, Total 0.3 mg/dL (0.2-1.0); Total Protein 7.3 g/dL (6.4-8.2)
[2020-08-29] MEDS ORDERED: LORazepam 2MG/ML-1ML VIAL IV ONE (13:30)
[2020-08-29] MEDS ORDERED: InsuLIN REG 1unit/0.01ml Soln (100units/ml) IV ONE (13:30)
[2020-08-29] MEDS ORDERED: GABAPENTIN 400 MG CAP PO ONE (16:00)
[2020-08-29] MEDS ORDERED: predniSONE 5 MG TAB PO ONE (16:00)
[2020-08-29] MEDS ORDERED: BACLOFEN 10 MG TAB PO ONE (16:00)
[2020-08-29 19:02] VITALS: BP 138/91
== END 2020-08-29 21:10 | disposition designated cancer center or children's hospital (05) ==
LOC: ER 11:26
DX: M86.8X4 Other osteomyelitis, hand (principal); E11.9 Type 2 diabetes mellitus without complications; I10 Essential (primary) hypertension; F17.210 Nicotine dependence, cigarettes, uncomplicated; Z88.6 Allergy status to analgesic agent; Z88.8 Allergy status to other drugs, medicaments and biological substances; Z20.822 Contact with and (suspected) exposure to COVID-19
CPT/HCPCS: 36415; 73200; 80053; 82962; 83605; 85025; 85652; 87040; 87426; 96361; 96365; 96375; 96376; 99285; J1170; J2405; J3490; J7040; J7512

== ENCOUNTER 2020-12-30 14:54 | Emergency (ER) | payer MEDICARE, MEDICAID ==
[~2020-12-30] VITALS: Ht 160 cm; Wt 68.9 kg
[2020-12-30 16:48] VITALS: BP 121/83
== END 2020-12-30 18:24 | disposition home or self-care (01) ==
LOC: ER 14:54
DX: M17.0 Bilateral primary osteoarthritis of knee (principal); G89.4 Chronic pain syndrome; E11.9 Type 2 diabetes mellitus without complications; I10 Essential (primary) hypertension; F17.210 Nicotine dependence, cigarettes, uncomplicated; Z88.6 Allergy status to analgesic agent; W18.39XA Other fall on same level, initial encounter; Y93.89 Activity, other specified; Y92.89 Other specified places as the place of occurrence of the external cause; Y99.8 Other external cause status
CPT/HCPCS: 73560

== ENCOUNTER 2023-02-12 08:37 | Emergency (ER) | payer MEDICARE, MEDICAID ==
[~2023-02-12] VITALS: Ht 160 cm; Wt 58.4 kg
[2023-02-12 09:15] VITALS: PULSE 111; RESP 22; O2SAT 98
[2023-02-12] MEDS ORDERED: diphenhdrAMINE HCL 50 MG/1 ML VL IV ONE ×2 (10:00→12:30)
[2023-02-12] MEDS ORDERED: HYDROmorphone HCL 2 MG/ML VL/or syr IV ONE ×2 (10:00→12:30)
[2023-02-12 10:33] LABS: Urine Bacteria FEW /hpf (None Seen); Urine Blood Negative /uL (Negative); Urine Clarity Clear (Clear); Urine Color Colorless (Yellow); Urine Protein, UAD Negative (Negative); Urine Specific Gravity 1.035 (1.001-1.035); Urine Urobilinogen Normal (Negative); Urine WBC 2 /hpf (0 - 5)
[2023-02-12 10:45] LABS: Chloride 102 mmol/L (98-107); Potassium 4.3 mmol/L (3.5-5.1); Sodium 138 mmol/L (136-145)
[2023-02-12 10:46] LABS: Anion Gap 10 (5-15); Carbon Dioxide 26 mmol/L (20-30)
[2023-02-12 10:47] LABS: Calcium 9.1 mg/dL (8.5-10.1)
[2023-02-12 10:49] LABS: Basophils # (auto) 0 10 ^3/uL (0-0.2); Basophils % (auto) 0.4 % (0.0-2.0); Eosinophils # (auto) 0 10 ^3/uL (0-0.8); Eosinophils % (auto) 0.1 % (0.0-7.0); Hematocrit 40.9 % (36.0-46.0); Hemoglobin 13.5 g/dL (12.2-16.2); Lymphocytes # (auto) 0.5 10 ^3/uL (0.4-5.4); Lymphocytes % (auto) 6.5 % (10.0-50.0); Mean Corpuscular Hemoglobin 29.5 pg (28.0-32.0); Mean Corpuscular Hgb Conc. 33.1 g/dL (32.0-36.0); Mean Corpuscular Volume 89.2 fL (80.0-100.0); Monocytes # (auto) 0.6 10 ^3/uL (0-1.3); Neutrophils # (auto) 6.5 10 ^3/uL (1.6-8.6); Red Blood Cells 4.59 10^6/uL (4.0-5.20); Red Cell Distribution Width 13.1 % (11.8-14.3); White Blood Cell 7.7 10^3/uL (4.4-10.8)
[2023-02-12 10:52] LABS: Blood Urea Nitrogen 15 mg/dL (9-23); Glucose 308 mg/dL (74-106)
[2023-02-12] MEDS ORDERED: IOHEXOL 300 MG/ML 100ML BOTTLE IJ ONE (11:31)
[2023-02-12 12:00] VITALS: TEMP 98
[2023-02-12 16:00] VITALS: BP 120/75; PULSE 111; RESP 16; O2SAT 96
[2023-02-12] MEDS ORDERED: oxyCODONE ER 10 MG TAB PO ONE (16:00)
== END 2023-02-12 16:31 | disposition home or self-care (01) ==
LOC: ER 08:37
DX: Z48.89 Encounter for other specified surgical aftercare (principal); R10.2 Pelvic and perineal pain; G89.4 Chronic pain syndrome; L98.9 Disorder of the skin and subcutaneous tissue, unspecified; I10 Essential (primary) hypertension; E11.9 Type 2 diabetes mellitus without complications; F17.210 Nicotine dependence, cigarettes, uncomplicated; Z79.899 Other long term (current) drug therapy; Z88.5 Allergy status to narcotic agent; Z88.8 Allergy status to other drugs, medicaments and biological substances
CPT/HCPCS: 36415; 73201; 80048; 81001; 84702; 85025; 96374; 96375; 96376; 99285; J1170; J1200; Q9967

== ENCOUNTER 2023-02-13 13:33 | Emergency (ER) | payer MEDICARE, MEDICAID ==
[~2023-02-13] VITALS: Ht 160 cm; Wt 58.5 kg
[2023-02-13 13:51] VITALS: BP 123/88; RESP 16; O2SAT 91
[2023-02-13 14:09] VITALS: PULSE 136
[2023-02-13] MEDS ORDERED: HYDROmorphone HCL 2 MG/ML VL/or syr IM ONE (14:30)
[2023-02-13 15:18] LABS: Urine Bacteria FEW /hpf (None Seen); Urine Blood Negative /uL (Negative); Urine Clarity Clear (Clear); Urine Color Yellow (Yellow); Urine Protein, UAD TRACE (Negative); Urine Specific Gravity 1.044 (1.001-1.035); Urine Urobilinogen Normal (Negative); Urine WBC 10 /hpf (0 - 5); Urine pH 6.5 (5.0-8.0)
== END 2023-02-13 16:13 | disposition left against medical advice (07) ==
LOC: ER 13:33
DX: G89.18 Other acute postprocedural pain (principal); N39.0 Urinary tract infection, site not specified; I10 Essential (primary) hypertension; E11.9 Type 2 diabetes mellitus without complications; F41.9 Anxiety disorder, unspecified; M19.90 Unspecified osteoarthritis, unspecified site; F20.9 Schizophrenia, unspecified; F17.210 Nicotine dependence, cigarettes, uncomplicated; Z98.890 Other specified postprocedural states; Z88.8 Allergy status to other drugs, medicaments and biological substances; Z79.84 Long term (current) use of oral hypoglycemic drugs; Z79.899 Other long term (current) drug therapy
CPT/HCPCS: 81001; 93005